=== PATIENT | male | born 1995 | race Caucasian/White ===

== ENCOUNTER 2021-03-31 13:37 | Emergency (ER) | payer MEDICAID ==
[~2021-03-31] VITALS: Ht 177.8 cm; Wt 84.4 kg
[2021-03-31 13:40] VITALS: BP_SYST 129
[2021-03-31] MEDS ORDERED: MECLIZINE HCL 25 MG TABLET (ANITVERT) PO ONE (14:30)
[2021-03-31] MEDS ORDERED: METOCLOPRAMIDE HCL 10 MG/2 ML VIAL IVP ONE (14:30)
[2021-03-31 15:21] LABS: BASOPHILS % (AUTO) 0.6 % (0.0-2.0); EOSINOPHILS # (AUTO) 0.1 K/uL (0.0-0.4); EOSINOPHILS % (AUTO) 1.2 % (0.0-4.0); HEMATOCRIT 46.2 % (36-54); HEMOGLOBIN 15.8 g/dL (14.0-18.0); LYMPHOCYTES # (AUTO) 1.2 K/uL (1.0-5.5); LYMPHOCYTES % (AUTO) 17.4 % (20.5-51.5); MEAN CORPUSCULAR HEMOGLOBIN 33 pg (27-31); MEAN CORPUSCULAR HGB CONC 34 % (32-36); MEAN CORPUSCULAR VOLUME 96 fL (79.0-98.0); MONOCYTES # (AUTO) 0.8 K/uL (0.0-1.0); MONOCYTES % (AUTO) 12.2 % (1.7-9.3); NEUTROPHILS # (AUTO) 4.6 K/uL (1.8-7.7); NEUTROPHILS % (AUTO) 68.6 % (40.0-70.0); PLATELET COUNT (AUTO) 221 K/uL (130-430); RED BLOOD CELL COUNT(AUTO) 4.79 MIL/uL (4.2-6.2); RED CELL DISTRIBUTION WIDTH 12.6 % (9.0-15.0); WHITE BLOOD COUNT (AUTO) 6.7 K/uL (4.8-10.8)
[2021-03-31 15:24] LABS: CALCIUM 9.6 mg/dL (8.4-11.0); CREATININE 1.03 mg/dL (0.55-1.30)
[2021-03-31 15:30] LABS: ALBUMIN 4.1 g/dL (3.4-4.8)
[2021-03-31] MEDS ORDERED: IBUP-1971 PO (15:49)
[2021-03-31] MEDS ORDERED: MECL-160 PO (15:49)
[2021-03-31 16:13] VITALS: BP_SYST 129
== END 2021-03-31 16:14 | disposition home or self-care (01) ==
LOC: SED 13:37
DX: R42 Dizziness and giddiness (principal); J45.909 Unspecified asthma, uncomplicated; Z79.899 Other long term (current) drug therapy
CPT/HCPCS: 36415; 71045; 80053; 84484; 85025; 85610; 85730; 93005; 99285; J2765; J8597